=== PATIENT | female | born 1985 | race Caucasian/White ===

== ENCOUNTER → 2023-11-11 11:25 | Outpatient (REF) | payer BC, SELFPAY | LOC: HWRAD 11:25 | PROVIDERS: ATTENDING PHYSICIAN Nurse Practitioner Women's Health | DX: Z15.01 Genetic susceptibility to malignant neoplasm of breast (principal); Z15.02 Genetic susceptibility to malignant neoplasm of ovary; Z15.09 Genetic susceptibility to other malignant neoplasm; Z15.89 Genetic susceptibility to other disease; Z12.11 Encounter for screening for malignant neoplasm of colon | CPT/HCPCS: 76830; 76856 ==

== ENCOUNTER → 2024-11-09 13:48 | Outpatient (REF) | payer OTHER, SELFPAY | LOC: HWWDC 13:48 | PROVIDERS: ATTENDING PHYSICIAN Nurse Practitioner Women's Health; FAMILY PHYSICIAN Physician Assistant Medical | DX: Z12.31 Encounter for screening mammogram for malignant neoplasm of breast (principal) | CPT/HCPCS: 77063; 77067 ==

== ENCOUNTER 2025-05-26 07:15 | Emergency (ER) | payer OTHER, SELFPAY ==
[2025-05-26 07:35] VITALS: BP 113/79
[2025-05-26 07:51] VITALS: BP 103/74
[2025-05-26 07:52] VITALS: BMI 19.6
[2025-05-26 08:00] VITALS: BP 100/70
--- NOTE | 2025-05-26 08:06 | ED.GENMED ---
History of Present Illness
General
Chief Complaint: Chest Pain
Source: patient
Exam Limitations: none
Time Seen by Provider: 05/26/25 08:06
History of Present Illness
History of Present Illness:
39yoF with a history of hyperlipidemia and hypothyroidism presenting for evaluation of chest pain. Patient ran a 5K yesterday and started to notice some minor pain in the left upper lateral chest. She exercises regularly and denies any anginal
symptoms. Her pain resolved throughout the remainder of the day yesterday. She woke up in the middle of the night around 1:30 AM with a cramping pain to her left upper chest. Symptoms have been constant since then but do wax and wane. Nothing
seems to make the pain better or worse. Her only other symptom is some mild lightheadedness. She denies any shortness of breath, pleuritic pain, leg swelling, calf pain, syncope, diaphoresis, nausea, vomiting. Patient has been consuming a lot of
apple cider vinegar the past week and she researched her symptoms online and she is worried about hypokalemia. She had a coronary calcium score 2 years ago which was indicative of mild plaque burden. She saw a director telehealth at [facility] at the
time and was started on a statin and was told to follow up in 5 years.
Past History
Past History
ED Past Medical History: None
ED Past Surgical History: None
Social History
Tobacco: Non-smoker
Alcohol: None
Personal:
Living: with family
Phy Exam
General Physical Exam
General Presentation: well appearing and no apparent distress
General Skin: warm and dry
General Habitus: normal
General Mental: alert
ENT Exam
ENT Exam: normocephalic
Cardiovascular Exam
Cardiovascular Exam: regular rate/rhythm, no edema, no murmur and normal peripheral pulses (2+ DP pulses bilaterally)
Pulmonary Exam
Pulmonary Exam: lungs clear, no respiratory distress, no rales, no crackles, no rhonchi, no wheezing and other (+Tenderness in L upper chest wall)
Neurological Exam
Neurological Exam: alert
Judy Coma Scale
Eye Opening: Spontaneous
Verbal Response: Oriented
Motor Response: Obeys Commands
GCS Total Score: 15
Skin Exam
Skin Exam: normal color and warm/dry
Psychiatric Exam
Psychiatric Exam: normal mood/affect
Scores
Heart Score for Chest Pain Patients
STEMI patient?: No
History: Slightly or Non-Suspicious
ECG: Normal
Age: </= 45 years
Risk Factors: 1 or 2 Risk Factors
Troponin: </= Normal Limit
Heart Score for Chest Pain Patients: 1
Heart Score Risk: 2.5% MACE over next 6 weeks
Course
Orders/Labs/Results
Orders:
Orders
05/26/25 07:19
EKG [Electrocardiogram (*1)] Urgent
Reason for Study: Chest Pain
EKG- Treatment ONCE
05/26/25 07:44
Test Result ONCE
05/26/25 07:52
Complete Blood Count/With Diff Urgent
Comprehensive Metabolic Panel Urgent
Creatine Phosphokinase Urgent
Comment: ADD ON
HCG, Serum Qualitative Screen Urgent
Lipase Urgent
Troponin I Urgent
05/26/25 08:15
Add On- LAB Urgent
Tests Added?: CK
Cardiac Monitoring- Treatment ONCE
CR Chest - 2 Views Urgent
Comment:
Reason For Exam: CP
Abnormal Lab Results
05/26/25
07:52
WBC 4.2 L 10^3/uL
(4.8-10.8)
RBC 3.85 L 10^6/uL
(4.20-5.40)
MCH 34.5 H pg
(27.0-31.0)
05/26/25 07:52
05/26/25 07:52
Vital Signs
Initial and Last Documented VS:
Initial Vital Signs
Temp Pulse Resp BP Pulse Ox
97.8 F 61 16 113/79 98
05/26/25 07:35 05/26/25 07:35 05/26/25 07:35 05/26/25 07:35 05/26/25 07:35
Last Documented Vital Signs
Temp Pulse Resp BP Pulse Ox
97.8 F 60 17 100/70 99
05/26/25 07:35 05/26/25 09:00 05/26/25 08:45 05/26/25 08:00 05/26/25 09:00
MDM/Problems Addressed
Differential Diagnosis Includes:
39yoF here with cramping L upper chest pain since 1:30am this morning. Exercises regularly and has no anginal symptoms. VSS. She is well appearing in no distress. There is tenderness to the chest wall on exam. Differential diagnosis includes but is
not limited to: musculoskeletal, rhabdomyolysis, less likely ACS, doubt PE, doubt pneumothorax
Initial ED plan: Triage EKG shows sinus bradycardia without ischemic changes. Will check cardiac labs, CK, and CXR.
*Pulse Oximetry
SaO2: 98
Oxygen Mode of Delivery: Room air
Patient hypoxic: no (98%)
*EKG
Interpreted by ED Provider?: Yes
EKG Intrepretation Date: 05/26/25
Heart Rate: 59
Rate: bradycardiac
Rhythm: sinus
[place]: normal axis
Interval: normal interval
QRS Pattern: normal QRS
Ischemia: no ischemia
*Critical Care Note
Total Time (30-74mins, 75-104mins- exclusive of procedures): Not Applicable
Update Note
Update Note:
Labs overall unremarkable including normal electrolytes and CK. Troponin within normal limits. Chest x-ray appears normal per my interpretation. Patient is feeling improved on reassessment. HEART score is 1. No indication for hospitalization.
Suspect musculoskeletal pain. Supportive care discussed and advised f/u with PCP. ED return precautions reviewed and patient discharged in stable condition.
ED Attending Note
-
Portions of this chart may have been created with voice recognition software.� Occasional wrong word or��sound alike� substitutions may have occurred due to the inherent limitations of voice recognition software.
Discharge Plan
Departure
Patient Disposition: Home (Routine Discharge)
Date of Disposition: 05/26/25
Time of Disposition: 09:31
Patient with high blood pressure during this ER visit?: No
Discharge Problem:
Chest pain
Instructions: Chest Pain PCP Follow Up
Prescriptions:
No Action
levothyroxine 100 MCG tablet
100 mcg PO DAILY
methylprednisolone [Medrol (Mario)] 4 MG tablets,dose pack
4 tab PO . DIRECT Qty: 1 0RF
Referrals:
Laura Miramontes PA-C [Family Provider, Family Practice]
Activity Restrictions/Additional Instructions:
Apply heat to affected area and take ibuprofen as needed for pain.
Please follow-up with your family doctor this week. Return to the ER with any new or worsening symptoms.
Interventions
Interventions:
*Risk Screen - Suicide Last Done: 05/26/25 07:35
*General Assessment Last Done: 05/26/25 07:52
*Neglect/Abuse Screening Last Done: 05/26/25 07:35
*ED- Fall Risk Assessment Last Done: 05/26/25 07:52
*ED COVID-19 Vaccine History Last Done: 05/26/25 07:52
ED- Cardiac Assessment Last Done: 05/26/25 07:52
Discharge Date and Time
Print Language: WOLOF
[2025-05-26 08:07] LABS: Hematocrit 38.1 % (37.0-47.0); Hemoglobin 13.3 g/dL (12.0-16.0); Mean Corp Hgb Conc. 34.9 g/dL (33.0-37.0); Mean Corpuscular Volume 99.0 fL (81.0-99.0); Nucleated Red Blood Cells % 0 %; Platelet Count 268 10^3/uL (130-400); Red Cell Dist. Width 12.4 % (11.5-14.5)
[2025-05-26 08:23] LABS: HCG, Serum Qualitative Screen Negative
[2025-05-26 08:24] LABS: ALT (SGPT) 21 U/L (0-35); AST (SGOT) 30 U/L (14-36); Albumin 4.5 g/dl (3.5-5.0); Alkaline Phosphatase 47 U/L (38-126); Blood Urea Nitrogen 15 mg/dl (7-17); Calcium 8.7 mg/dl (8.4-10.2); Carbon Dioxide 29 mmol/L (22-30); Chloride 104 mmol/L (98-107); Estimated Creatinine Clearance 115 ml/min; Glucose 93 mg/dl (70-99); Lipase 157 U/L (23-300); Potassium 4.2 mmol/L (3.5-5.1); Sodium 137 mmol/L (135-145); Total Protein 6.8 g/dl (6.3-8.2); eGFR > 60.00
[2025-05-26 09:08] LABS: Troponin I 0.012 ng/ml
[2025-05-26 10:14] VITALS: BP 103/67
== END 2025-05-26 10:15 | disposition home or self-care (01) ==
LOC: EMR 07:15
PROVIDERS: EMERGENCY PHYSICIAN Emergency Medicine; FAMILY PHYSICIAN Physician Assistant Medical
DX: R07.9 Chest pain, unspecified (principal); E78.5 Hyperlipidemia, unspecified; E03.9 Hypothyroidism, unspecified
CPT/HCPCS: 99284; 71046; 80053; 82550; 83690; 84484; 84703; 85025; 93005

== ENCOUNTER → 2025-07-11 08:16 | Outpatient (REF) | payer SELFPAY | LOC: HWRAD 08:16 | PROVIDERS: ATTENDING PHYSICIAN Physician Assistant Medical | DX: E78.2 Mixed hyperlipidemia (principal) | CPT/HCPCS: 75571 ==

== ENCOUNTER → 2025-08-23 12:36 | Outpatient (REF) | payer OTHER, SELFPAY | LOC: MRI 3T 12:36 | PROVIDERS: ATTENDING PHYSICIAN Nurse Practitioner Women's Health; FAMILY PHYSICIAN Physician Assistant Medical | DX: R92.30 Dense breasts, unspecified (principal) | CPT/HCPCS: 77049; A9585 ==

== ENCOUNTER 2025-08-30 06:13 | Day surgery (SDC) | payer OTHER, SELFPAY | END 2025-08-30 12:52 | disposition home or self-care (01) | LOC: GI 06:13 | PROVIDERS: ATTENDING PHYSICIAN Internal Medicine Gastroenterology | DX: K62.5 Hemorrhage of anus and rectum (principal); K64.8 Other hemorrhoids; K63.5 Polyp of colon | CPT/HCPCS: 45380; 88305 ==